=== PATIENT | female | born 2000 | race Caucasian/White ===

== ENCOUNTER 2022-03-22 19:52 | Emergency (ER) | payer BC, SELFPAY ==
[2022-03-22 20:04] VITALS: BP 108/79; PULSE 73; RESP 18; TEMP 36.8; O2SAT 98
--- NOTE | 2022-03-22 20:08 | HMH.EDWNDL ---
ED Disposition Clinical Impression: Laceration of thumb Qualifiers: Encounter type: initial encounter Damage to nail status: without damage Foreign body presence: without foreign body Laterality: left Qualified Code(s): S61.012A - Laceration without foreign body of left thumb without damage to nail, initial encounter Disposition: Home, Self-Care Condition on Discharge: Good Instructions: DI for Laceration Repair Additional Instructions: recheck if any problems Referrals: Kenji Diamond MD [Primary Care Provider] - - Critical Care Critical Care Time: No Attestation: On , the high probability of a clinically significant, sudden or life threatening deterioration of the following system(s) required my full and direct attention, intervention and personal management. The time I documented below is in addition to time spent performing reported procedures but includes the following listed in this critical care notation. Medical Decision Making - Medical Records Medical records reviewed: Yes: I reviewed the patient's medical records. - Giovani Inquiry Pt receiving controlled substance: No Vital Signs: 03/22/22 20:04 Temperature 98.2 F Temperature Source Oral Pulse Rate [Apical] 73 Respiratory Rate 18 Blood Pressure [Right Arm] 108/79 L Blood Pressure Mean [Right Arm] 88 Blood Pressure Source [Right Arm] Automatic Cuff Blood Pressure Position [Right Arm] Sitting 02 Sat by Pulse Oximetry 98 Oxygen Delivery Method Room Air Wound/Laceration HPI - General Chief Complaint: Wound/Laceration Stated Complaint: AO 03/22@1900@home lac L thumb Time Seen by Provider: 03/22/22 20:08 Mode of Arrival: Ambulatory Source of Information: Patient, Parent(s), Medical Record Limitations: No Limitations Description of Symptoms (Recalled from ER Triage Doc. by RN): Pt states that one hour ago she was peeling potatoes when she accidentally cut the tip of her left thumb. Pt states her last tetanus shot was last year. Denies any other injuries. - History of Present Illness HPI narrative: avulsion lac to distal lt thumb cutting food at home Onset (ago): hour(s) Extremity Location: Left: hand Place: home Patient tetanus UTD: Yes Context: sharp object use Associated symptoms: none - Related Data Allergies Allergy/AdvReac Type Severity Reaction Status Date / Time From BACTRIM Allergy Intermediate I-HIVES Uncoded 07/31/17 15:15 From AUGMENTIN Allergy Unknown Uncoded 07/31/17 15:15 From OMNICEF Allergy Unknown Uncoded 07/31/17 15:15 [facility] History - Hepatitis A Screen Attestation statement:: This patient has been screened for Hepatitis A risk factors. I have reviewed the patient's past medical history: Yes ROS Obtained: Yes All systems reviewed & no additional complaints - Constitutional Constitutional: Denies fever(s) - Eyes Eyes: Denies change in vision - ENT Ears, Nose, Mouth, and Throat: Denies sore throat - Cardiovascular Cardiovascular: Denies chest pain - Respiratory Respiratory: Denies shortness of breath - Gastrointestinal Gastrointestingal: Denies: abdominal pain - Genitourinary Female Genitourinary: Denies hematuria - Musculoskeletal Musculoskeletal: Denies joint pain - Integumentary/Breasts Skin/Breast: Reports as per HPI, Reports other (laceration) - Neurologic Neurologic: Denies seizure-like activity Physical Exam - General General appearance: alert - Head Head exam: normocephalic - Eye Eye exam: Present: PERRL, EOMI - ENT ENT exam: Present: mucous membranes moist - Neck Neck exam: Present: trachea midline - Respiratory Respiratory exam: Absent: respiratory distress - Cardiovascular Cardiovascular exam: Present: regular rate - Abdominal Exam Abdominal exam: Present: soft - Extremities Exam Extremities exam: Present: full ROM - Neurological Exam Neurological exam: Present: alert, oriented X3, CN II-XII intact. Absent: motor sensory deficit
[2022-03-22 20:16] VITALS: BP 107/75; PULSE 71; RESP 18; TEMP 36.8; O2SAT 98
== END 2022-03-22 20:40 | disposition home or self-care (01) ==
PROVIDERS: Emergency Provider Emergency Medicine; PCP Internal Medicine Adolescent Medicine
DX: S61.012A Laceration without foreign body of left thumb without damage to nail, initial encounter (principal); W26.9XXA Contact with unspecified sharp object(s), initial encounter; Y93.G1 Activity, food preparation and clean up; Y92.010 Kitchen of single-family (private) house as the place of occurrence of the external cause
CPT/HCPCS: 12001; 99282

== ENCOUNTER 2022-05-21 18:55 | Emergency (ER) | payer BC, SELFPAY ==
--- NOTE | 2022-05-21 19:25 | EXP.UTC ---
Discharge Plan Disposition Patient Disposition: Home, Self-Care Condition: Good Prescriptions Prescriptions: New cyclobenzaprine 10 mg Tablet 10 mg PO BID PRN (Reason: Muscle Spasm) Qty: 20 0RF methylprednisolone 4 mg Tablets,Dose Pack 4 mg PO DIRECTED Qty: 21 0RF Referrals Follow up/Referrals: Kenji Diamond MD [Primary Care Provider] - See instructions Activity Restrictions/Add. Instructions Additional Instructions/Restrictions: Go home and rest. It would be best if you rested tomorrow too. No heavy lifting. No twisting. Take the oral medications as directed. The muscle relaxer (cyclobenzaprine--Flexeril) will make you drowsy, so don't drive or operate heavy machinery after taking it. Don't start the oral steroids (medrol dose pack) until tomorrow, since you had the shots in here today. Follow up with your regular doctor. GO TO THE ER FOR ANY WORSENING SYMPTOMS OR CONCERN, ESPECIALLY BOWEL OR BLADDER ISSUES, SADDLE AREA NUMBNESS, FEVER, ETC Clinical Impressions Clinical Impression: Low back pain Instructions Patient Instructions: DI for Low Back Pain, Lumbar Radiculopathy Discharge ED Provider: Ronen Mills [facility] General Stated complaint: poss muscle spasms Time Seen by Provider: 05/21/22 19:25 History of Present Illness Provider Complaint: she c/o low back pain that radiates down her right leg. She has had episodes of this pain since she fell in middle school. She usually as to get a steroid shot and toradol shot and it will get better. Related Data Previous Rx's Medication Instructions Recorded cyclobenzaprine 10 mg tablet 10 mg PO BID PRN Muscle Spasm #20 05/21/22 tabs methylprednisolone 4 mg tablets in 4 mg PO DIRECTED #21 tabs 05/21/22 a dose pack Allergies Allergy/AdvReac Type Severity Reaction Status Date / Time amoxicillin Allergy Verified 05/21/22 19:45 From BACTRIM Allergy Intermediate I-HIVES Uncoded 07/31/17 15:15 From AUGMENTIN Allergy Unknown Uncoded 07/31/17 15:15 From OMNICEF Allergy Unknown Uncoded 07/31/17 15:15 [facility] Social History Smoking Status: Never smoker alcohol intake: never current occupational status: employed Travel in the last 8 weeks: None ROS Obtained: Yes All systems reviewed & no additional complaints except as documented Constitutional Constitutional: Denies chills and Denies fever(s) Eyes Eyes: Denies eye discharge ENT Ears, Nose, Mouth, and Throat: Denies dizziness, Denies otalgia and Denies sore throat Cardiovascular Cardiovascular: Denies chest pain Respiratory Respiratory: Denies shortness of breath, Denies chest congestion, Denies cough, Denies stridor and Denies wheezing Gastrointestinal Gastrointestingal: Denies nausea or vomiting Musculoskeletal Musculoskeletal: Reports system reviewed and no additional complaints, except as documented and Denies arthralgias Integumentary/Breasts Skin/Breast: Denies rash Neurologic Neurologic: Denies dizziness and Denies paresthesias Allergic/Immunologic Allergic/Immunologic: Denies wheezing Physical Exam General General appearance: alert and in no apparent distress Head Head exam: atraumatic, normocephalic and normal inspection Eye Eye exam: Present normal appearance, PERRL and EOMI ENT ENT exam: Present normal exam, normal oropharynx, mucous membranes moist, TM's normal bilaterally and normal external ear exam Neck Neck exam: Present normal inspection, full ROM and trachea midline; Absent meningismus or lymphadenopathy Chest Chest inspection: Present normal inspection and symmetric chest wall rise; Absent tenderness Respiratory Respiratory exam: Present normal lung sounds bilaterally; Absent respiratory distress Cardiovascular Cardiovascular exam: Present regular rate and normal rhythm; Absent JVD Abdominal Exam Abdominal exam: Present soft and normal bowel sounds; Absent distention, tendernes
[2022-05-21 19:41] VITALS: BP 144/85; PULSE 122; RESP 18; TEMP 37.1; O2SAT 98; BMI 30.9
[2022-05-21 20:05] VITALS: BP 144/85; PULSE 122; RESP 18; TEMP 37.1
== END 2022-05-21 20:14 | disposition home or self-care (01) ==
PROVIDERS: Emergency Provider Nurse Practitioner Family; PCP Internal Medicine Adolescent Medicine
DX: M54.50 Low back pain, unspecified (principal)
CPT/HCPCS: 96372; 99212; G0463